=== PATIENT | female | born 1950 | race Caucasian/White ===

== ENCOUNTER 2019-11-17 10:19 | Observation (INO) ==
[2019-10-19 13:21] LABS: Basophils # (auto) 0.03 K/uL (0-0.2); Basophils % (auto) 0.4 %; Eosinophils # (auto) 0.15 K/uL (0-0.5); Eosinophils % (auto) 1.8 %; Hematocrit (blood only) 41.5 % (37-47); Hemoglobin 13.8 g/dL (12.0-16.0); Immature Granulocytes # (auto) 0.02 K/uL (0.00-0.02); Immature Granulocytes % (auto) 0.2 %; Lymphocytes # (auto) 2.42 K/uL (1.2-3.4); Lymphocytes % (auto) 29.3 %; Mean Corpuscular Hemoglobin 29.9 pg (25-34); Mean Corpuscular Hgb Conc 33.3 g/dL (32-36); Mean Corpuscular Volume 89.8 fL (80-100); Mean Platelet Volume 11.6 fL (7.4-10.4); Monocytes # (auto) 0.52 K/uL (0.11-0.59); Monocytes % (auto) 6.3 %; Neutrophils # (auto) 5.13 K/uL (1.4-6.5); Platelet Count 224 K/uL (130-400); RDW Standard Deviation 42.4 fL (36.4-46.3); Red Blood Count 4.62 M/uL (4.2-5.4); White Blood Count 8.27 K/uL (4.8-10.8)
[2019-10-19 13:36] LABS: Partial Thromboplastin Time 28.3 Seconds (21.0-31.0); Prothrombin Time 10.9 Seconds (9.0-12.0)
[2019-10-19 13:45] LABS: BUN Creatinine Ratio 19.6 (10-20); Blood Urea Nitrogen 16 mg/dl (7-18); C Reactive Protein 0.31 mg/dl (0-0.29); Calcium 9.4 mg/dl (8.5-10.1); Carbon Dioxide 24 mmol/L (21-32); Chloride 108 mmol/L (98-107); Est GFR (African American) 87.2; Est GFR (Non-African American) 75.2; Glucose 111 mg/dl (70-99); Potassium 3.5 mmol/L (3.5-5.1); Sodium 141 mmol/L (136-145)
--- NOTE | 2019-11-13 10:32 | Anesthesiology Consultation ---
Date of Service November 13, 2019 Assessment & Plan (1) Encounter for pre-operative examination: Chart Review Chart Review: Acceptable Risk for Surgery (pending Covid testing results ) and Patient NOT seen in Pre Admission Testing Per nursing assessment 11/11/2019, patient resides in [facility]. No other travel. Pt denies any known contact with PUI/Covid positive patients. No current Covid related symptoms. Pt had Covid testing done 11/10 per surgeon request at [facility]. Results pending History Surgery Operation Date: 11/17/19 12:10 Proposed Procedures p Left Total Knee Arthroplasty - Wilfrid Douglas MD Height/Weight Height: 5 ft 4 in Weight: 83.007 kg Allergies Allergy/AdvReac Type Severity Reaction Status Date / Time lidocaine Allergy Intermediate Rash Verified 11/13/19 09:06 Sulfa (Sulfonamide Allergy Intermediate Unknown Verified 11/13/19 09:06 Antibiotics) Penicillins AdvReac Mild light Verified 11/13/19 09:06 sensitivty-YEARS AGO pepper (genus Capsicum) AdvReac Unknown Cough Verified 11/13/19 09:06 ibuprofen AdvReac FLUID Verified 11/13/19 09:06 RETENTION Tetracyclines AdvReac YEAST Verified 11/13/19 09:06 INFECTION Medications Home Medications Medication Instructions Recorded Confirmed Last Taken alendronate 70 mg tablet 70 mg PO WK 10/19/19 11/13/19 Unknown levothyroxine 75 mcg capsule 75 mcg PO QAM 10/19/19 11/13/19 Unknown metoprolol succinate 50 mg 50 mg PO QPM 10/19/19 11/13/19 Unknown tablet,extended release 24 hr nystatin 100,000 unit/gram topical 1 appln TOP QAM 10/19/19 11/13/19 Unknown powder potassium chloride 20 mEq oral 20 meq PO QPM 10/19/19 11/13/19 Unknown packet pravastatin 20 mg tablet 20 mg PO QPM 10/19/19 11/13/19 Unknown aspirin [Aspir-81] 81 mg PO HS 11/13/19 11/13/19 Unknown hydrochlorothiazide 25 mg PO QPM 11/13/19 11/13/19 Unknown Past Medical History Medical History Cancer UTERINE Hyperlipidemia Hypertension Hypothyroidism Left knee DJD Osteoarthritis Osteoporosis Sleep apnea CAN'T TOLERATE CPAP SOB (shortness of breath) on exertion Past Family History Family History Mother Family history of diabetes mellitus Past Surgical History Surgical History History of cardiac cath 2009 NO STENTS History of colonoscopy History of coronary artery bypass graft 1994? 2 V[facility] BYPASS/1 [facility] History of hysterectomy OVARIES REMAIN Social History Smoking Status: Never smoker Do You Dip or Chew Tobacco: No Hx Alcohol Use: Yes Alcohol type: beer, wine and hard liquor alcohol intake frequency: 3 or more drinks per day Hx Substance Use: No Testing Laboratory Results 10/19/19 12:40 10/19/19 12:40 PT 10.9 Seconds (9.0-12.0) 10/19/19 12:40 INR 1.0 (0.9-1.1) 10/19/19 12:40 APTT 28.3 Seconds (21.0-31.0) 10/19/19 12:40 Blood Type A Positive 10/19/19 12:41 Antibody Screen NEGATIVE 10/19/19 12:41 Electrocardiogram Date: 10/19/19 Findings: + SB @ (57) Incomplete RBBB. Chest X-Ray Date: 10/19/19 Findings: + NAD Linear left midlung opacity represents atelectasis or scarring.
[~2019-11-17 10:19] MED LIST: ACETAMINOPHEN 500 MG TAB PO SCH; BUPIVACAINE 0.5 % 5 MG/1 ML PF 10ML VIAL ONE; BUPIVACAINE LIPOSOME/PF 266 MG, BUPIVACAINE/EPINEPHRINE 50 ML, SODIUM CHLORIDE 0.9% 30 ... INFIL SCH; FAMOTIDINE 20 MG TAB PO SCH; GABAPENTIN 300 MG CAP PO SCH; LR 500ML BOLUS, THEN 15ML/HR IV SCH; LR 60ML/HR IV SCH; METOCLOPRAMIDE HCL 10 MG TABLET PO SCH; MIDAZOLAM HCL 1 MG/ML 2ML VIAL ONE; SCOPOLAMINE 1.5 MG TDSY TD SCH; TRANEXAMIC ACID 1,000 MG **IV Intra-op IV SCH; fentaNYL citrate 100 MCG/2 ML VIAL ONE
[2019-11-17] MEDS ORDERED: SODIUM CHLORIDE 0.9% PF 50 ML VIAL ONE (12:38)
[2019-11-17] MEDS ORDERED: BACITRACIN INJ 50,000 UNIT VIAL ONE (12:38)
[2019-11-17] MEDS ORDERED: BUPIVACAINE LIPOSOME 1.3% 266 MG/20 ML VIAL ONE (12:38)
--- NOTE | 2019-11-17 12:38 | History & Physical Bridge Note ---
Date of Service November 17, 2019 History & Physical Bridge Note I have examined the patient, reviewed the History & Physical and in the interval since the performance of the History & Physical I have noted the following changes of clinical significance: no changes noted
[2019-11-17] MEDS ORDERED: BUPIVACAINE 0.25% 30 ML VIAL ONE (12:39)
[2019-11-17] MEDS ORDERED: EPINEPHrine INJ 1 MG/ML AMP ONE (12:39)
[2019-11-17] MEDS: CEFAZOLIN 2000MG 2,000 MG/15 ML SYR IV SCH ×3 (13:09→21:19)
[2019-11-17] MEDS ORDERED: PROPOFOL IV EMULSION 10 MG/ML 20 ML VIAL IV ONE ×3 (13:12→14:11)
--- NOTE | 2019-11-17 15:02 | Post Operative Brief Note ---
PG Immediate Post Op with CF Date of Surgery November 17, 2019 Pre & Post Diagnosis Operation Date: 11/17/19 12:10 Pre-Op Diagnosis: Left Knee Advanced Degenerative Joint Disease Post-Op Diagnosis: Left Knee Advanced Degenerative Joint Disease I identified the patient and participated in the time-out.: Yes Procedure Operation Date: 11/17/19 12:10 Actual Procedures p Left Total Knee Arthroplasty(Left) - Wilfrid Douglas MD Surgeon Wilfrid Douglas MD Ultrasound Supervisor Jami, PAC Estimated Blood Loss 50 Findings Consistent with Post-Op Diagnosis Fluids 1600 cc Specimens Specimen Description: A. Left Knee Bone and Tissue Drains Johnson Catheter Anesthesia Type Spinal MAC Complications none Disposition Accompanied Patient To Recovery: No Disposition: Recovery Room
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
--- NOTE | 2019-11-17 15:32 | XRay Report ---
XR knee LT 1 or 2V routine CLINICAL HISTORY: Surgical Post Op COMPARISON: X-ray study dated 10/19/2019 DISCUSSION: There is an old posttraumatic deformity of the proximal tibia. There are postsurgical andrade nges of a total left knee arthroplasty and patellar resurfacing. The femoral tibial components appear well seated. There are overlying skin gustavo. There is gas present within the soft tissues consiste nt with recent surgery IMPRESSION: Postsurgical changes of a total left knee arthroplasty. ACT 112: Negative or not required by law. Electronically signed by: Wilder Stephen M.D. 11/17/2019 3:31 PM
[2019-11-17] MEDS ORDERED: ATROPINE SULFATE 0.1 MG/ML 10ML SYR IV PRN (15:40)
[2019-11-17] MEDS ORDERED: ePHEDrine sulfate 50 MG/ML AMP IV PRN (15:40)
--- NOTE | 2019-11-17 15:40 | Anesthesiology Progress Note ---
Date of Service November 17, 2019 Anesthesia Post Procedure Vital Signs Vital Signs: Temp Pulse Pulse Resp BP BP Pulse Ox 11/17/19 15:35 52 L 14 155/71 H 93 11/17/19 15:25 56 L 16 123/79 94 11/17/19 15:15 56 L 14 136/63 93 11/17/19 15:07 36.1 C L 56 L 16 142/69 H 94 11/17/19 10:49 36.8 C 60 16 148/83 H 94 Pain Intensity Left Knee: Pain Intensity: 0 Transfer of Care Handoff Completed per policy Notes Mental Status: alert / awake / arousable and participated in evaluation Patient Amnestic to Procedure: Yes Nausea / Vomiting: adequately controlled Pain: adequately controlled Airway Patency, RR, SpO2: stable & adequate BP & HR: stable & adequate Hydration State: stable & adequate Anesthetic Complications: no major complications apparent and Pt Satisfied with anesthetic care
[2019-11-17] MEDS ORDERED: bisacodyL 10 MG SUPP PR PRN (16:08)
[2019-11-17] MEDS ORDERED: HYDROmorphone INJ 0.5 MG/0.5 ML SYR IV PRN (16:08)
[2019-11-17] MEDS ORDERED: METOCLOPRAMIDE HCL INJ 5 MG/ML 2 ML VIAL IV PRN (16:08)
[2019-11-17] MEDS ORDERED: NALOXONE HCL 0.4 MG/1 ML VIAL/CARP IV PRN (16:08)
[2019-11-17] MEDS ORDERED: MAGNESIUM HYDROXIDE SUSP 30 ML UDC PO PRN (16:08)
[2019-11-17] MEDS: CHECK SCOPOLAMINE PATCH PLACEMENT SCH ×2 (16:22→23:35)
[2019-11-17] MEDS: ONDANSETRON INJ 2 MG/ML 2 ML VIAL IV PRN (16:34)
[2019-11-17] MEDS: SODIUM CHLORIDE 0.9% 1000ML 1,000 ML IV SCH (16:34)
[2019-11-17] MEDS: ASCORBIC ACID 500 MG TAB PO SCH (17:18)
[2019-11-17] MEDS: FERROUS GLUCONATE 324 MG TAB PO SCH (17:19)
[2019-11-17] MEDS: KETOROLAC TROMETHAMINE 15 MG/ML VIAL IV SCH ×2 (17:19→23:35)
[2019-11-17] MEDS: DOCUSATE SODIUM 100 MG CAP PO SCH (21:03)
[2019-11-17] MEDS: hydroCHLOROthiazide 25 MG TAB PO SCH (21:03)
[2019-11-17] MEDS: ASPIRIN 81 MG ECTAB PO SCH (21:03)
[2019-11-17] MEDS: SENNA 8.6 MG TAB PO SCH (21:04)
[2019-11-17] MEDS: POTASSIUM CHLORIDE PWD 20 MEQ PACK PO SCH (21:04)
[2019-11-17] MEDS ORDERED: TRANEXAMIC ACID / 0.7% NACL 1,000 MG/100 ML BAG IV SCH (21:05)
[2019-11-17] MEDS: ACETAMINOPHEN 500 MG TAB PO SCH (21:05)
[2019-11-17] MEDS: METOPROLOL SUCC 50MG EXT REL TAB PO SCH (21:05)
[2019-11-17] MEDS: PRAVASTATIN SOD 20 MG TAB PO SCH (21:06)
[2019-11-18] MEDS: SODIUM CHLORIDE 0.9% 1000ML 1,000 ML IV SCH (02:27)
[2019-11-18] MEDS: TRAMADOL HCL 50 MG TABLET PO PRN ×2 (04:01→16:22)
[2019-11-18] MEDS: KETOROLAC TROMETHAMINE 15 MG/ML VIAL IV SCH ×3 (05:40→17:57)
[2019-11-18] MEDS: ACETAMINOPHEN 500 MG TAB PO SCH ×3 (05:40→20:33)
[2019-11-18] MEDS: CEFAZOLIN 2000MG 2,000 MG/15 ML SYR IV SCH (05:44)
[2019-11-18] MEDS: LEVOTHYROXINE SODIUM 75 MCG TABLET PO SCH (05:45)
[2019-11-18 06:27] LABS: Hematocrit (blood only) 34.9 % (37-47); Hemoglobin 11.7 g/dL (12.0-16.0); Mean Corpuscular Hgb Conc 33.5 g/dL (32-36); Mean Corpuscular Volume 89.5 fL (80-100); Mean Platelet Volume 11.3 fL (7.4-10.4); Platelet Count 158 K/uL (130-400); RDW Coefficient of Variation 12.8 % (11.5-14.5); RDW Standard Deviation 41.2 fL (36.4-46.3)
[2019-11-18 06:47] LABS: BUN Creatinine Ratio 14.5 (10-20); Calcium 8.4 mg/dl (8.5-10.1); Creatinine Clr Calc Pharmacy 55.9 ml/min; Est GFR (African American) 67.4; Est GFR (Non-African American) 58.1; Potassium 3.7 mmol/L (3.5-5.1)
[2019-11-18] MEDS: CHECK SCOPOLAMINE PATCH PLACEMENT SCH ×2 (09:08→16:09)
[2019-11-18] MEDS: DOCUSATE SODIUM 100 MG CAP PO SCH ×2 (09:09→20:33)
[2019-11-18] MEDS: FERROUS GLUCONATE 324 MG TAB PO SCH ×2 (09:09→16:10)
[2019-11-18] MEDS: ASCORBIC ACID 500 MG TAB PO SCH ×2 (09:09→16:10)
[2019-11-18] MEDS: NYSTATIN POWDER 15GM BTL EXT SCH (09:09)
[2019-11-18] MEDS: MULTIVITAMIN TAB PO SCH (09:10)
[2019-11-18] MEDS: ASPIRIN 81 MG ECTAB PO SCH ×2 (09:10→20:32)
[2019-11-18] MEDS: ONDANSETRON INJ 2 MG/ML 2 ML VIAL IV PRN ×2 (09:35→20:54)
[2019-11-18] MEDS ORDERED: ONDANSETRON 4 MG OD TAB PO PRN (12:01)
--- NOTE | 2019-11-18 12:20 | Progress Notes ---
DATE: 11/18/2019 SUBJECTIVE: A 69-year-old white female postop day 1 from left knee replacement. She is doing pretty well. Having a little bit of nausea. Having some pain but reasonably well controlled. No chest pain or shortness of breath. Not feeling dizzy or lightheaded. OBJECTIVE: VITAL SIGNS: Temperature 37.0. Vital signs stable. GENERAL: Shows a pleasant, middle-aged female. She is lying in bed, looks reasonably comfortable today. EXTREMITIES: Examination of the left leg reveals the leg to be well aligned. Dressing is clean, dry and intact. She can dorsiflex and plantarflex her foot appropriately. She is neurologically intact. LABORATORY DATA: Hemoglobin is 11.7. Hematocrit 34.9. Electrolytes are stable. ASSESSMENT: A 69-year-old white female postoperative day 1 from left knee replacement, doing reasonably well. Having a little bit of nausea with pain medicines, which was not too unexpected. Pain seems to be pretty well controlled. She is neurologically intact. PLAN: 1. DVT prophylaxis including thigh-high TEDs, SCDs, and aspirin twice a day. 2. PT/OT. Weight bear as tolerated. Left total knee protocol. 3. Pain control, doing okay with current pain regimen. Having some nausea and we will continue to give her some Zofran. 4. Disposition: Plan is to be discharged to home with some family and some home health. We will likely do some more therapy today and try and control her nausea with hopeful discharge tomorrow.
[2019-11-18] MEDS: hydroCHLOROthiazide 25 MG TAB PO SCH (20:31)
[2019-11-18] MEDS: METOPROLOL SUCC 50MG EXT REL TAB PO SCH (20:32)
[2019-11-18] MEDS: PRAVASTATIN SOD 20 MG TAB PO SCH (20:32)
[2019-11-18] MEDS: SENNA 8.6 MG TAB PO SCH (20:34)
[2019-11-18] MEDS: POTASSIUM CHLORIDE PWD 20 MEQ PACK PO SCH (20:54)
[2019-11-19] MEDS: KETOROLAC TROMETHAMINE 15 MG/ML VIAL IV SCH ×2 (00:04→05:31)
[2019-11-19] MEDS: CHECK SCOPOLAMINE PATCH PLACEMENT SCH ×2 (00:04→08:30)
[2019-11-19] MEDS: ACETAMINOPHEN 500 MG TAB PO SCH (05:31)
[2019-11-19] MEDS: LEVOTHYROXINE SODIUM 75 MCG TABLET PO SCH (05:31)
[2019-11-19] MEDS: ASPIRIN 81 MG ECTAB PO SCH (08:31)
[2019-11-19] MEDS: ASCORBIC ACID 500 MG TAB PO SCH (08:31)
[2019-11-19] MEDS: FERROUS GLUCONATE 324 MG TAB PO SCH (08:31)
[2019-11-19] MEDS: DOCUSATE SODIUM 100 MG CAP PO SCH (08:31)
[2019-11-19] MEDS: NYSTATIN POWDER 15GM BTL EXT SCH (08:31)
[2019-11-19] MEDS: MULTIVITAMIN TAB PO SCH (08:32)
--- NOTE | 2019-11-19 08:59 | Progress Notes ---
DATE: 11/19/2019 SUBJECTIVE: A 69-year-old white female postop day 2 from a left knee replacement. She is doing pretty well. Pain seems to be a little bit better today. Nausea is improved. No chest pain or shortness of breath. Not feeling dizzy or lightheaded. OBJECTIVE: VITAL SIGNS: Temperature 37.0. Vital signs stable. GENERAL: Shows a pleasant elderly female. She is lying in bed, looks pretty comfortable. EXTREMITIES: Examination of the left leg reveals the leg to be well aligned. She can dorsiflex and plantarflex her foot appropriately. No significant drainage on the dressing. She is neurologically intact. ASSESSMENT: A 69-year-old white female postop day 2 from left knee replacement, doing pretty well. Pain is controlled. She is neurologically intact. PLAN: 1. DVT prophylaxis including thigh-high TEDs, SCDs, and aspirin twice a day. 2. PT/OT. Weight bear as tolerated. Left total knee protocol. 3. Pain control, doing pretty well with current pain regimen. 4. Disposition: Plan to discharge to home with some home health later today.
[2019-11-19] MEDS: TRAMADOL HCL 50 MG TABLET PO PRN (11:40)
--- NOTE | 2019-11-25 14:07 | Discharge Summary ---
Date of Service November 25, 2019 Admission HPI Per Admitting Provider Documented in the H&P Admission Exam (Per Admitting) Constitutional Documented in the H&P Discharge Data Consultations 11/17/19 16:08 Consult Case Management - Discharge Planning Routine Procedures Performed Operation Date: 11/17/19 12:10 Actual Procedures p Left Total Knee Arthroplasty(Left) - Wilfrid Douglas MD Hospital Course (1) Status post total left knee replacement: 69-year-old female made on 11/17/2019 underwent total knee replacement. Tolerated procedure well and there were no complications. She was transferred to the PACU postoperatively and later to the orthopedic for further care. She was given Ancef for antibiotic prophylaxis. She was also given MICHAEL stockings, SCDs, and aspirin for DVT prophylaxis. Her hemoglobin hematocrit and vital signs were monitored during her hospital stay remained stable. She did not require blood transfusions there were no complications. By postoperative day 2 she was tolerating a regular diet, pain was controlled with oral pain medicine, she is participating in physical therapy. On postop day 2 she was discharged home set up with home health services. She is given printed discharge instructions as well as new prescriptions fractioning Tylenol aspirin Zofran and tramadol. Continue her home medications. Continue physical therapy. She is weightbearing as tolerated. Continue MICHAEL stockings. Follow-up in approximately 2 weeks postop or sooner if there are any problems or concerns. Coding Level of Care Code None Diagnoses Status post total left knee replacement Z96.652
== END 2019-11-19 12:06 | disposition home health service (06) ==
LOC: ASU 10:19 → 3E 10:19